=== PATIENT | male | born 1985 ===

== ENCOUNTER 2017-06-16 09:08 | Day surgery (SDC) | payer BC ==
[~2017-06-16] VITALS: Ht 172.7 cm; Wt 68.0 kg
[2017-06-16] VITALS (9 sets, daily range): BP systolic 111–147; BP diastolic 69–97
[~2017-06-16 09:08] MED LIST: NKM; ceFAZolin sod 1 GM in NS 55 ML IVPB ONE
[2017-06-16] MEDS ORDERED: MULTIVITAMINS1 EAC2 ORAL (10:07)
[2017-06-16] MEDS ORDERED: fentaNYL 100 mcg/2 mL IV ONE (10:31)
[2017-06-16] MEDS ORDERED: Dexamethasone 4mg/ml vial ONE (10:32)
[2017-06-16] MEDS ORDERED: Lidocaine 1% MPF 10mg/ml 5ml ONE (10:32)
[2017-06-16] MEDS ORDERED: Sodium Chloride 10ml vial INJ ONE (10:32)
[2017-06-16] MEDS ORDERED: Lidocaine 1% Plain 30 ml INJ ONE ×3 (10:33→12:56)
[2017-06-16] MEDS ORDERED: Zemuron 50mg/5ml Inj IV ONE (10:56)
[2017-06-16] MEDS ORDERED: LR 1000ml 1,000 ML IVLG SCH (11:02)
[2017-06-16] MEDS ORDERED: DiphenhydrAMINE 50mg/ml Inj IVP PRN (11:15)
[2017-06-16] MEDS ORDERED: HYDROcodone/Acetamin 7.5/325 tab ORAL PRN (11:15)
[2017-06-16] MEDS ORDERED: Midazolam 2mg/2ml Inj IVP PRN (11:15)
[2017-06-16] MEDS ORDERED: LORazepam Inj 2mg/ml 1ml IV PRN (11:15)
[2017-06-16] MEDS ORDERED: fentaNYL 100 mcg/2 mL IV PRN (11:15)
[2017-06-16] MEDS ORDERED: Ketorolac 30mg Inj IV PRN ×2 (11:15)
[2017-06-16] MEDS ORDERED: Hydromorphone 0.5mg/0.5ml inj IVP PRN (11:15)
[2017-06-16] MEDS ORDERED: oxyCODONE HCL/Acetaminophen 5/325mg ORAL PRN (11:15)
[2017-06-16] MEDS ORDERED: Atropine Inj 1mg/10ml Syr IV PRN (11:15)
[2017-06-16] MEDS ORDERED: Norco 5mg/325mg tab ORAL PRN (11:15)
[2017-06-16] MEDS ORDERED: Labetalol 5mg/ml 20ml vial IV PRN (11:15)
--- NOTE | 2017-06-16 11:22 | Anethesia Preoperative Eval ---
Anesthesia Pre-op PMH/ROS General Date of Evaluation: Jun 16, 2017 Time of Evaluation: 11:31 Anesthesiologist: Pritesh ASA Score: ASA 2 Mallampati Score Class I : Soft palate, uvula, fauces, pillars visible Class II: Soft palate, uvula, fauces visible Class III: Soft palate, base of uvula visible Class IV: Only hard plate visible Mallampati Classification: Class I Surgeon: Janiya Diagnosis: Nasal Fracture Surgical Procedure: ORIF Nasal Fracture, SMR, Turbinates Anesthesia History: none Family History: no anesthesia problems Allergies: Coded Allergies: No Known Allergies (Unverified , 06/16/17) Medications: see eMAR Past Medical History PSxH Narrative: Nasal Repair Anesthesia Pre-op Phys. Exam Physician Exam Last Vital Signs Date Time Temp Pulse Resp B/P (MAP) Pulse Ox O2 Delivery O2 Flow Rate FiO2 06/16/17 10:12 97.9 56 20 111/69 100 Room Air 97.9 Constitutional: NAD Neurologic: CN 2-12 intact Cardiovascular: RRR Respiratory: CTA Gastrointestinal: S/NT/ND Airway Exam Mallampati Score: Class I MO: full ROM: full Teeth: intact Anesthesia Pre-op A/P Risk Assessment & Plan Assessment: ASA 2 Plan: GA, BIS, GlideScope Status Change Before Surgery: No Pre-Antibiotics Dru Gram Ancef IV Given Within 1 Hr of Incision: Yes Time Given: 11:46 Martin Jonas MD Jun 16, 2017 11:22
[2017-06-16] MEDS ORDERED: LR 1000ml ONE (11:30)
[2017-06-16] MEDS ORDERED: NS Irrig 1000ml ONE (11:30)
[2017-06-16] MEDS ORDERED: Sterile Water Irrig 1000ml IRRIG ONE (11:30)
[2017-06-16] MEDS ORDERED: Propofol 1,000mg/ 100ml btl IV ONE (11:30)
[2017-06-16] MEDS ORDERED: Kenalog-40 1ml Vial ONE (11:43)
[2017-06-16] MEDS ORDERED: Cocaine HCl 4% 4ml vial TOPIC ONE (11:43)
[2017-06-16] MEDS ORDERED: Oxymetazoline 0.05% Na Spray 30ml NASAL ONE (11:43)
[2017-06-16] MEDS ORDERED: Lidocaine 1% 10mg/ml/EPI 0.01mg/ml 50ml INJ ONE (11:44)
--- NOTE | 2017-06-16 12:20 | Immediate Post-Op Evaluation ---
Immediate Post-Op Evalulation Immediate Post-Op Evalulation Procedure: ORIF Nasal Fracture, SMR, Turbinates Date of Evaluation: Jun 16, 2017 Time of Evaluation: 15:17 IV Fluids: 800 LR Blood Products: 0 Estimated Blood Loss: 50 Urinary Output: 0 Blood Pressure Systolic: 147 Blood Pressure Diastolic: 97 Pulse Rate: 98 Respiratory Rate: 16 O2 Sat by Pulse Oximetry: 100 Temperature (Fahrenheit): 98.1 Pain Score (1-10): 2 Nausea: No Vomiting: No Complications 0 Patient Status: awake, reacts, patent, extubated, none Hydration Status: adequate Dru Gram Ancef IV Given Within 1 Hr of Incision: Yes Time Given: 11:46 Martin Jonas MD Jun 16, 2017 12:20
--- NOTE | 2017-06-16 12:21 | 48 Hour Post Anesthesia Eval ---
Post Anesthesia Evaluation Procedure: ORIF Nasal Fracture, SMR, Turbinates Date of Evaluation: Jun 16, 2017 Time of Evaluation: 17:23 Blood Pressure Systolic: 118 0: 74 Pulse Rate: 76 Respiratory Rate: 18 Temperature (Fahrenheit): 98.6 O2 Sat by Pulse Oximetry: 100 Airway: patent Nausea: No Vomiting: No Pain Intensity: 2 Hydration Status: adequate Cardiopulmonary Status: Stable Mental Status/LOC: patient returned to baseline Follow-up Care/Observations: 0 Post-Anesthesia Complications: 0 Follow-up care needed: ready to discharge Martin Jonas MD Jun 16, 2017 12:21
[2017-06-16] MEDS ORDERED: Betadine 10% Oint 30gm TOPIC ONE (14:02)
[2017-06-16] MEDS ORDERED: Bacitracin Oint 15gm Tube TOPIC ONE (14:02)
--- NOTE | 2017-06-16 15:03 | Pre-Procedure Note/Attestation ---
Pre-Procedure Note/Attestation Complete Prior to Procedure Planned Procedure: not applicable Procedure Narrative: planned to repair nasal and septal fractures, reconstruct his trauma obstructing deformities with graftng and advancement flaps, reduce hypertrophied inferior turbinates Indications for Procedure Pre-Operative Diagnosis: nasal and septal fractures, traumatic saddle nose deformity, bilateral hypertophied inferior turbinates, collapsed left internal valve Attestation I attest that I discussed the nature of the procedure; its benefits; risks and complications; and alternatives (and the risks and benefits of such alternatives ), prior to the procedure, with the patient (or the patient's legal service support representative). I attest that, if there was a reasonable possibility of needing a blood transfusion, the patient (or the patient's legal service support representative) was given the [place] [facility] [employer] [facility] standardized written summary, pursuant to the [place] Blood Safety Act ([place] Health and Safety Code # 1645, as amended). I attest that I re-evaluated the patient just prior to the surgery and that there has been no change in the patient's H&P, except as documented below: YOEL NIETO Jun 16, 2017 15:03
--- NOTE | 2017-06-16 15:06 | Brief Operative Note ---
Immediate Post Operative Note Operative Note Pre-op Diagnosis: nasal and septal fractures, traumatic saddle nose deformity, bilateral hypertophied inferior turbinates, collapsed left internal valve Procedure: open reduction and repair of nasal and septal fractures, bilateral inferior turbinectomies with intramural coagulation. repair of traumatic saddle nose deformity with Gortex graft, repair of collapsed left internal valve with rotation advancement flap Post-op Diagnosis: same as pre-op Surgeon: Gary Denson M.d. Anesthesiologist: Scotty Sam Anesthesia: general Specimen: none Complications: none Condition: stable Fluids: ringers lactate Estimated Blood Loss: minimal Drains: none Packing: telfa Implant(s) used?: Yes - GARY Mcmanus Jun 16, 2017 15:06
--- NOTE | 2017-06-18 03:30 | Operative Note - Dictated ---
DATE OF OPERATION: 06/16/2017 SURGEON: Gary Denson M.D. ANESTHESIOLOGIST: Martin Jonas M.D. ANESTHESIA: General. PREOPERATIVE DIAGNOSES: 1. Nasal and septal fractures. 2. Bilateral hypertrophied inferior turbinates. 3. Multiple traumatic obstructing nasal deformities. POSTOPERATIVE DIAGNOSES: 1. Nasal and septal fractures. 2. Bilateral hypertrophied inferior turbinates. 3. Multiple traumatic obstructing nasal deformities. PROCEDURES: 1. Open reduction repair of nasal and septal fractures. 2. Repair of traumatic saddle nose deformity with [place]-Last implant. 3. Bilateral inferior turbinectomies with intramural coagulation. 4. Repair of left internal valve collapse with rotation advancement flap. INDICATION FOR SURGERY: The patient is a 32-year-old male, who became dehydrated approximately 10 to 11 days ago falling on his face and sustaining nasal and septal fractures documented by CT scan in the emergency room. Since the time of the injury, the patient complains of nasal deformity with significant nasal obstruction. The CT scan showed multiple nasal fractures, which were displaced. Because of the patient's traumatic nasal deformities and obstruction, he is now being brought to the operating room for repair. The findings at surgery revealed an irregular bony dorsum and the nasal pyramid is rotated to the right. There is significant saddle nose deformity narrowing both internal valves. The septum was noted to be deviated to the right and there was collapse of the left internal valve. These traumatic deformities combined with the patient's bilateral hypertrophied inferior turbinates created a bilateral nasal airway obstruction with the left being slightly worse than the right. DESCRIPTION OF PROCEDURE: The patient was brought to the operating room while premedicated and having received preoperative antibiotics. He was then placed in supine position on the operating room table. A sterile marking pen was used to demarcate the area of saddle nose deformity. The patient then underwent satisfactory endotracheal intubation followed by IV sedation. The nasal cavity was sprayed with 0.25% Bret-Synephrine. A sterile Q-tip saturated Betadine was used to sterilize the intranasal cavity. Approximately 26 mL of 1% Xylocaine with 1:100,000 epinephrine were used to inject the nasal and septal fractures. Less than 200 mg of cocaine were used on intranasal packing. The patient was then prepped and draped in the usual sterile fashion. After a suitable period of vasoconstriction, the packing was removed. A #15 blade was used to make an incision between the upper and lower lateral cartilage carried to the septal angle, then along the right inferior aspect of the septum running into significant scar tissue. scissors was then used to elevate the soft tissue off the nasal framework. A periosteal elevator was used to elevate the periosteum off the nasal bony region. Bleeding was encountered and this was able to be controlled with cautery and the injection of approximately 3 mL of 1% Xylocaine with 1:100,000 epinephrine. found to be controlled. Examination revealed bone deflected into the overlying skin and soft tissue and this was taken down sharply. The area was then rinsed with Betadine solution. A 2 mm piece of [place]-Last, which had been cut to fit the area previously described in the saddle nose deformity region and had been placed with Betadine solution, was then brought into this fresh sterile field. The suture of 5-0 plain was placed superiorly and inferiorly. The suture was placed in the nasal quadrant and brought out through the superior aspect of the area demarcated along the nasal dorsum. An inferior suture was also placed inferiorly along the saddle nose region and the graft was then slid into place and the suture was tied. Re-examination revealed the graft to be in the correct position, which supports the nasal dorsum and help alleviate the right internal valve obstruction. The sutures were tightened down and secured in place with Steri-Strips. A right mucoperichondrial flap was then elevated running into significant scar tissue and extensive bleeding, which was finally able to be controlled with cautery and the injection with 1% Xylocaine with 1:100,000 epinephrine approximately 2 mL. Left mucoperiosteal flap was elevated. Examination revealed that the septum had been buckled because of the trauma obstructing the right inflow tract. To take any cartilage out would weaken the dorsal injury making the internal valve even more obstructive than it was before. Therefore, the cartilage was extensively crosshatched to be able to be mobilized in more midline position for breathing, did not obstruct the level of the saddle nose deformity and further collapse. A 4-0 plain was then used to close the septal incision as well as splint the septum. An incision was made on the undersurface of both inferior turbinates. A bipolar intramural coagulation of both inferior turbinates was then performed. An incision was made in the undersurface of both inferior turbinates and mucosa stripped the underlying bone. The inferior turbinate was outfractured and a small piece of bone removed from the pocket. Re-examination still revealed the bony pyramid deviated to the right and the left internal valve was still collapsed. A #15 blade was used to extend cartilage incision along the inferior aspect of the septum and the very end of the internal valve. Incision was made vertically and carried down to the septum. A horizontal incision was then used to connect the two vertical incisions. The remaining adherent tissue was able to be severed through the internal valve. The valve covering soft tissue was then able to be rotated laterally and inferiorly and sewn in place with interrupted sutures of 4-0 plain. Re-examination now revealed only the nasal pyramid deviating to the right and the patient has an improved nasal airway. A right lateral osteotomy was performed along with an osteotomy through the nasal pyramid, which was able to be mobilized in a more midline position for breathing. Re-examination now revealed the patient to have a good bilateral nasal airway. All blood was suctioned from the nose and nasopharynx area. A 4-0 plain was used to close the between the cartilage incision as well as remaining inferior incisions. Telfa coated with Betadine ointment was secured intranasally with a suture of 3-0 silk. An external dressing consisting of paper tape, adhesive tape, and a cast were then secured in place and the procedure was terminated. The patient tolerated the procedure well and left the operating room in satisfactory condition. Estimated blood loss was less than 30 mL. Sponge and needle counts were correct. Gary Denson M.D. DR: MELIZA JOB#: [id number] CC: TC
== END 2017-06-16 17:15 | disposition home or self-care (01) ==
LOC: SUR 09:08
DX: S02.2XXA Fracture of nasal bones, initial encounter for closed fracture (principal); J34.3 Hypertrophy of nasal turbinates; M95.0 Acquired deformity of nose; X58.XXXA Exposure to other specified factors, initial encounter
CPT/HCPCS: 21336; 30520; 30802; J0690; J1100; J2001; J2250; J2405; J2704; J3010; J7120; 94003; 94150